=== PATIENT | female | born 1980 | race Caucasian/White ===

== ENCOUNTER 2016-12-29 09:26 | Emergency (ER) | payer OTHER ==
--- NOTE | ~2016-12-29 | CR181 ---
[facility] A Service of [facility] RADIOLOGY TEXT RESULTS PATIENT: FOUZIA LAMBERT LOCATION: CFTX : 76 UNIT #: [id number] AGE: [address]: SHARON KLEIN SEX: F ORDER DR: [id number] [facility] [address] [place], [place] [address] [id number] E MR#: [id number] Acc #: [id number] NAME: FOUZIA LAMBERT. : 1980 SEX: F STUDY DATE/TIME: 12/29/2016 9:50 UNIT: [facility] ROOM: STUDY DESCRIPTION: CR Lumbar Spine 2 or 3 Views Attending Physician: Sharon Klein A.P.R.N. Ordering Physician: Sharon Klein A.P.R.N. MEDICAL IMAGING REPORT This report is preliminary unless electronic signature is present EXAM Lumbar spine 3 views HISTORY Back pain radiating to legs. Right-sided leg pain today. Patient fell down steps. COMPARISON STUDIES 07/18/2013. FINDINGS Vertebral body heights and alignment are normal. There is stable disc space narrowing L5-S1. IMPRESSION No acute findings. Stable L5-S1 disc space narrowing. Dictated by... Randolph Zamudio M.D. THIS IS AN ELECTRONICALLY VERIFIED REPORT Randolph Zamudio M.D. at 12/30/2016 10:30 AM ARS/oliva TD: 12/29/2016 11:56 JOB #: [id number] MEDICAL IMAGING REPORT Page 1 of 1 COPY
[~2016-12-29 09:26] MED LIST: AEROBID7 GM; ALBUTEROL 0.5ML INH; ALBUTEROL20 ml INH; ALPRAZOLAM PO; AMBIEN10 MG PO; BACTRIM DS TABL1 TA1 PO; BENTYL10 MG PO; BENTYL20 MG PO; BUPROPION HCL150 M2 PO; CELEXA PO; CELEXA20 MG PO; CLARITIN10 M2 PO; CLARITIN10 M3 PO; CLEOCIN HCL300 M1 PO; CLEOCIN PO; CLINDAMYCIN HC300 MG PO; DICLOFENAC PO; FLAGYL PO; FLEXERIL10 MG PO; GABAPENTIN300 M2 PO; GABAPENTIN300 MG PO; GABAPENTIN600 MG PO; GLUCOPHAGE500 MG PO; HUMALOG MI100 UNIT/1 SQ; HUMALOG MI100 UNIT/2 SUBQ; HUMALOG MIX 75/10 ML; HUMALOG MIX 75/10 ML SUBQ; HUMALOG MIX 75/23 ML SUBQ; HUMALOG100 U/ML SUBQ; HUMULIN 70100 UNIT/1 SUBQ; HUMULIN N300 U/3 ML SUBQ; HUMULIN R100 U/ML SQ; HUMULIN R100 U/ML SUBQ; HUMULIN R500 U/ML SUBQ; IBUPROFEN800 MG PO; KETOPROFEN PO; KLONOPIN1 MG PO; KLONOPIN2 MG PO; LAMICTAL PO; LANTUS100 U/ML SQ; LEVAQUIN750 MG PO; LEVOTHYROXINE50 MC1 PO; LEVOTHYROXINE50 MCG PO; LEVOXYL50 MC1 PO; LIORESAL10 MG PO; LIPITOR PO; LISINOPRIL20 MG PO; LORTAB 5/500 TA1 TA1 PO; LORTAB 7.5-5001 TAB PO; LYRICA PO; LYRICA50 MG PO; LYRICA75 MG PO; MACROBID100 MG PO; MAGNESIUM400 M1 PO; METFORMIN PO; MOBIC PO; MULTIVITAMIN1 UDCAP PO; NEURONTIN PO; NEURONTIN600 MG PO; NEXIUM PO; NOVOLIN 70/30 V10 M1 SUBQ; NOVOLIN 70/30 V10 ML INJ; OMEPRAZOLE40 M1 PO; OMEPRAZOLE40 MG PO; PERCOCET 5-3251 TAB PO; PERCOCET5/325 PO; PHENERGAN25 M1 PO; PHENERGAN25 MG PO; PREDNISONE PO; PRENATAL VITAMI1 TA3 PO; PRILOSEC PO; PRILOSEC40 MG PO; PRINIVIL40 MG PO; PROVENTIL5 MG/ML INH; PROVERA PO; REGLAN10 MG PO; RELION NOV100 UNIT/1; SENOKOT S1 TA1 PO; SEROQUEL PO; SIMVASTATIN20 MG PO; SIMVASTATIN40 MG PO; SYMBICORT80 INH; SYNTHROID PO; SYNTHROID0.05 MG PO; VIBRAMYCIN100 M1 PO; VICODIN 5/1 TAB 5/50 PO; VICODIN 5/500 T1 TAB PO; VICODIN PO; VITAMIN B12-FO1 EACH PO; VITAMIN D50000 UNIT PO; VOLTAREN50 MG PO; ZANTAC150 MG PO; ZEGERID40 MG/PKT PO; ZESTRIL40 MG PO; ZOFRAN ODT4 MG PO
[2016-12-29 09:55] LABS: URINE SOURCE CLEAN CATCH
[2016-12-29 10:05] LABS: URINE APPEARANCE CLEAR; URINE BILIRUBIN NEG (NEG); URINE BLOOD TRACE (NEG); URINE COLOR YELLOW; URINE GLUCOSE 500 MG/DL (NEG); URINE KETONE NEG (NEG); URINE LEUKOCYTE ESTERASE NEG (NEG); URINE NITRATE NEG (NEG); URINE PH 5.5 (5-8); URINE PROTEIN NEG (NEG); URINE SPECIFIC GRAVITY 1.012 (1.003-1.035); URINE UROBILINOGEN 0.2 MG/DL (NEG)
[2016-12-29 10:08] LABS: URBCS1 AUWI 0-2 /[HPF] (0-2); URINE BACTERIA AUWI NEG (NEGATIVE); URINE SQUAMOUS EPITHELIAL CELL OCC /[HPF]; UWBCS1 AUWI 0-2 (0-5)
[2016-12-29 10:19] LABS: CULTURE INDICATED? NO
== END 2016-12-29 10:35 | disposition home or self-care (01) ==
LOC: CED 09:26 → CFTX 09:26
PROVIDERS: Nurse Practitioner
DX: S39.012A Strain of muscle, fascia and tendon of lower back, initial encounter (principal); J45.909 Unspecified asthma, uncomplicated; Z88.0 Allergy status to penicillin; Z88.5 Allergy status to narcotic agent; Z88.8 Allergy status to other drugs, medicaments and biological substances; W18.30XA Fall on same level, unspecified, initial encounter; Y92.9 Unspecified place or not applicable
CPT/HCPCS: 72100; 81003; 84703; 96372; 99283; J1885

== ENCOUNTER 2017-01-05 11:32 | Emergency (ER) | payer OTHER | END 2017-01-05 12:45 | disposition home or self-care (01) | LOC: CED 11:32 | DX: G89.29 Other chronic pain (principal); R53.1 Weakness; R53.83 Other fatigue; K21.9 Gastro-esophageal reflux disease without esophagitis; J45.909 Unspecified asthma, uncomplicated; E03.9 Hypothyroidism, unspecified; K76.0 Fatty (change of) liver, not elsewhere classified; E11.40 Type 2 diabetes mellitus with diabetic neuropathy, unspecified; F17.210 Nicotine dependence, cigarettes, uncomplicated; Z88.0 Allergy status to penicillin; Z88.8 Allergy status to other drugs, medicaments and biological substances; Z88.1 Allergy status to other antibiotic agents; Z79.899 Other long term (current) drug therapy; Z79.4 Long term (current) use of insulin; Z98.890 Other specified postprocedural states | CPT/HCPCS: 96372; 99284; J1885 ==